=== PATIENT | male | born 1980 | race Native Hawaiian/Other Pacific Islander ===

== ENCOUNTER 2019-05-09 16:50 | Emergency (ER) | payer OTHER ==
[~2019-05-09] VITALS: Ht 175.3 cm; Wt 63.5 kg
[2019-05-09 16:53] VITALS: BP 154/100; TEMP 99.3
== END 2019-05-09 18:13 | disposition home or self-care (01) ==
LOC: ED 16:50
DX: S00.83XA Contusion of other part of head, initial encounter (principal); W22.8XXA Striking against or struck by other objects, initial encounter
CPT/HCPCS: 99283

== ENCOUNTER 2019-08-15 09:14 | Emergency (ER) | payer OTHER | END 2019-08-15 09:38 | disposition home or self-care (01) | LOC: ED 09:14 | DX: S61.210A Laceration without foreign body of right index finger without damage to nail, initial encounter (principal) | CPT/HCPCS: 99281 ==

== ENCOUNTER 2020-02-29 01:35 | Emergency (ER) | payer OTHER ==
[~2020-02-29] VITALS: Ht 175.3 cm; Wt 65.8 kg
[2020-02-29 03:00] VITALS: BP 143/102; TEMP 98.4
== END 2020-02-29 03:00 | disposition home or self-care (01) ==
LOC: ED 01:35
DX: L25.9 Unspecified contact dermatitis, unspecified cause (principal); I10 Essential (primary) hypertension; F17.210 Nicotine dependence, cigarettes, uncomplicated
CPT/HCPCS: 99282

== ENCOUNTER 2021-04-21 11:52 | Emergency (ER) | payer OTHER ==
[~2021-04-21] VITALS: Ht 172.7 cm; Wt 63.5 kg
[2021-04-21 12:04] VITALS: BP 136/94; TEMP 97.8
== END 2021-04-21 12:32 | disposition home or self-care (01) ==
LOC: ED 11:52
DX: Z53.21 Procedure and treatment not carried out due to patient leaving prior to being seen by health care provider (principal)
CPT/HCPCS: 99281